=== PATIENT | male | born 1975 | race Caucasian/White ===

== ENCOUNTER 2022-03-30 12:34 | Inpatient (IN) | payer MEDICARE ==
[~2022-03-30] VITALS: Ht 188 cm; Wt 181.4 kg
[~2022-03-30 12:34] MED LIST: ACCU-CHEK1 EACH MC; CYMBALTA60 MG PO; FISH OIL 1,0001 EAC1 PO; GABAPENTIN600 MG PO; GLUCOPHAGE500 MG PO; GLUCOSAMINE &1 EAC1 PO; HUMALOG100 UNIT/3 SC; LANTUS SOL100 UNIT/1 SQ; LISINOPRIL40 MG PO; MAGNESIUM30 MG PO; MULTI-VITAMIN1 EACH PO; TEST N'GO1 EACH MC; TRAMADOL HCL50 MG PO; VOLTAREN EC 5050 MG PO; [UNRECOGNIZED DRUG - OTHER] MC
[2022-03-30 13:43] LABS: HEMOGLOBIN 14.7 gm/dl (14.0-17.5); RED BLOOD COUNT 5.08 M/UL (4.20-5.50)
[2022-03-30 14:26] LABS: BUN/CREATININE RATIO 18 (0-10)
[2022-03-30] MEDS ORDERED: TOUJEO MAX300 UNIT/1 SQ (17:58)
[2022-03-30] MEDS ORDERED: DICLOFENAC SODI50 MG PO (17:59)
[2022-03-30] MEDS ORDERED: HUMALOG100 UNIT/3 SQ (18:00)
[2022-03-31 02:23] LABS: HEMOGLOBIN 13.7 gm/dl (14.0-17.5); RED BLOOD COUNT 4.62 M/UL (4.20-5.50); WHITE BLOOD COUNT 11.2 K/UL (4.5-11.0)
[2022-03-31 02:39] LABS: BUN/CREATININE RATIO 20 (0-10)
[2022-04-02 04:47] LABS: HEMOGLOBIN 14.2 gm/dl (14.0-17.5); RED BLOOD COUNT 4.74 M/UL (4.20-5.50); WHITE BLOOD COUNT 12.6 K/UL (4.5-11.0)
[2022-04-02 05:29] LABS: BUN/CREATININE RATIO 18 (0-10)
[2022-04-02] MEDS ORDERED: AMLODIPINE BESYL5 MG PO (10:02)
[2022-04-02] MEDS ORDERED: LEVOFLOXACIN750 MG PO (10:02)
[2022-04-02] MEDS ORDERED: LASIX20 MG PO (13:34)
[2022-04-04 11:06] LABS: WHITE BLOOD COUNT 14.5 K/UL (4.5-11.0)
== END 2022-04-02 19:03 | disposition home or self-care (01) | DRG 603 ==
LOC: ER1 12:34 → M/S 15:13 → CDU 15:13 → M/S 17:26
PROVIDERS: Physician Assistant Medical; ADMIT Internal Medicine
PROC: 5A09457 Assistance with Respiratory Ventilation, 24-96 Consecutive Hours, Continuous Positive Airway Pressure (ICD-10-PCS; principal; 2022-03-30)
DX: L03.115 Cellulitis of right lower limb (principal); Z68.43 Body mass index [BMI] 50.0-59.9, adult; Z20.822 Contact with and (suspected) exposure to COVID-19; E66.01 Morbid (severe) obesity due to excess calories; E11.9 Type 2 diabetes mellitus without complications; G60.0 Hereditary motor and sensory neuropathy; E78.5 Hyperlipidemia, unspecified; Z88.0 Allergy status to penicillin; Z79.4 Long term (current) use of insulin
CPT/HCPCS: 36415; 73620; 80048; 80053; 80061; 80202; 82962; 83605; 83735; 84100; 85025; 85027; 85652; 86140; 87040; 94660; 96372; 96374; 96375; 96376; 99284; G0378; J1650; J1940; J1956; J3370; J7070